=== PATIENT | male | born 1965 | race Caucasian/White ===

== ENCOUNTER 2019-07-20 14:48 | Outpatient (CLI) | payer OTHER, SELFPAY ==
--- NOTE | 2019-07-20 14:37 | DI.RAD_ITS ---
SYMPTOMS/DIAGNOSIS: LEFT SHOULDER ARTHRITIS, RIGHT SHOULDER PAIN LEFT SHOULDER: There is minimal spurring at the tip of the acromion. Mild spurring is also seen at the glenoid. The glenohumeral joint space is well maintained. No tendon or joint space calcifications are seen. IMPRESSION: Minimal degenerative changes. RIGHT SHOULDER: There is minimal spurring at the tip of the acromion and at the inferior glenoid. The glenohumeral joint space is well maintained. No tendon or joint space calcifications are seen.
== END 2019-07-20 15:08 ==
PROVIDERS: PCP Family Medicine; Visit Provider Student in an Organized Health Care Education/Training Program
DX: M25.511 Pain in right shoulder (principal); M19.011 Primary osteoarthritis, right shoulder; M19.012 Primary osteoarthritis, left shoulder
CPT/HCPCS: 73030

== ENCOUNTER 2019-07-27 00:43 | Outpatient (CLI) | payer OTHER, SELFPAY ==
--- NOTE | 2019-07-27 15:13 | DI.MRI_ITS ---
SYMPTOMS/DIAGNOSIS: TENDINITIS OF LONG HEAD OF BICEPS BRACHII OF RIGHT SHOULDER, BILATERAL SHOULDER BURSITIS, ? RIGHT ROTATOR CUFF TEAR, FAILURE OF CONSERVATIVE MANAGEMENT, M75.21, M75.51, M75.52, M75.101 MRI OF THE RIGHT SHOULDER: Comparison is made with plain films dated July,. Proton density and fat-suppressed T2 axial and coronal and T1 and fat-suppressed T2 sagittal sequences were performed. There is no significant spurring at the AC joint. There is some increased signal within the supraspinatus tendon and a tiny defect distally, which may indicate a partial tear. The infraspinatus, subscapularis and biceps tendons appear intact. There is no joint effusion. There are no gross labral defects. IMPRESSION: Partial tear of the supraspinatus tendon.
== END 2019-07-27 01:03 ==
PROVIDERS: PCP Family Medicine; Visit Provider Student in an Organized Health Care Education/Training Program
DX: M75.101 Unspecified rotator cuff tear or rupture of right shoulder, not specified as traumatic (principal); M75.21 Bicipital tendinitis, right shoulder; M75.51 Bursitis of right shoulder; M25.511 Pain in right shoulder
CPT/HCPCS: 73221

== ENCOUNTER 2020-05-21 14:43 | Outpatient (REF) | payer OTHER, SELFPAY ==
[2020-05-21 15:43] LABS: Anion Gap 5.9 mmol/L (3-11); BUN 12 mg/dL (7-18); CO2 29.1 mmol/L (21.0-32.0); CREATININE 0.98 mg/dL (0.70-1.30); Calcium 8.9 mg/dL (8.5-10.1); Calculated LDL 121 mg/dL (<100); Chloride 104 mmol/L (98-107); Cholesterol 180 mg/dL (<200); Glucose 88 mg/dL (74-106); HDL Cholesterol 29 mg/dL (40-60); Magnesium 1.8 mg/dL (1.8-2.4); Potassium 4.4 mmol/L (3.5-5.1); Sodium 139 mmol/L (136-145); Triglyceride 151 mg/dL (<150)
[2020-05-21 15:49] LABS: Hemoglobin A1C 6.1 % (3.8-5.6)
== END 2020-05-21 15:03 ==
LOC: NCHCN 14:43
PROVIDERS: PCP Family Medicine; Visit Provider Family Medicine
DX: F17.200 Nicotine dependence, unspecified, uncomplicated (principal); L29.9 Pruritus, unspecified; M19.90 Unspecified osteoarthritis, unspecified site; Z13.220 Encounter for screening for lipoid disorders; Z13.1 Encounter for screening for diabetes mellitus
CPT/HCPCS: 80048; 80061; 83036; 83735

== ENCOUNTER 2020-06-18 18:25 | Outpatient (REF) | payer OTHER, SELFPAY ==
[2020-06-18 20:27] LABS: ALT 69 U/L (16-63); AST 58 U/L (15-37); Albumin 3.5 g/dL (3.4-5.0); Alkaline Phosphatase 128 U/L (46-116); Bilirubin, Total 0.3 mg/dL (0.2-1.0); Folate 12.4 ng/mL (8.6-20.0); TSH (W/Ref FT4) 1.65 uIU/mL (0.36-3.74); Total Protein 6.9 g/dL (6.4-8.2); Vitamin B12 646 pg/mL (193-986)
[2020-06-18 20:40] LABS: Bilirubin, Direct 0.09 mg/dL (0.00-0.20)
[2020-06-20 12:26] LABS: Ferritin 199 ng/mL (26-388)
[2020-06-20 12:36] LABS: Iron 79 ug/dL (65-175); Total Iron Binding Capacity 242 ug/dL (250-450); Transferrin Sat 33 % (20-55)
== END 2020-06-18 18:45 ==
LOC: NCHCN 18:25
PROVIDERS: PCP Family Medicine; Visit Provider Family Medicine
DX: L29.9 Pruritus, unspecified (principal)
CPT/HCPCS: 80076; 82607; 82728; 82746; 83540; 83550; 84443

== ENCOUNTER 2020-06-27 02:09 | Outpatient (CLI) | payer OTHER, SELFPAY ==
--- NOTE | 2020-06-27 | DI.US_ITS ---
EXAM: US ABDOMEN CLINICAL HISTORY: ELEVATED LFT'S.R79.89 TECHNIQUE: Ultrasound abdomen performed using standard protocol. COMPARISON: No exams were available for comparison FINDINGS: ABDOMINAL AORTA AND IVC: Visualized portions normal caliber. PANCREAS: Normal where visualized. LIVER: Fatty infiltration. Hepatopedal flow in the Portal Vein. 17 cm in length. GALLBLADDER: No evidence of cholelithiasis. No evidence of wall thickening. No pericholecystic fluid identified. BILIARY SYSTEM: Common bile duct measures 5.3 mm. No intrahepatic biliary ductal dilation. BUENROSTRO'S SIGN: Negative. KIDNEYS: Kidneys are symmetric in size. No evidence of renal calculi. No evidence of hydronephrosis. No renal mass or cyst identified. SPLEEN: Not enlarged. ASCITES: None seen. IMPRESSION: Fatty infiltration of the liver. DATA REPOSITORY:
== END 2020-06-27 02:29 ==
PROVIDERS: PCP Family Medicine; Visit Provider Family Medicine
DX: R79.89 Other specified abnormal findings of blood chemistry (principal); K76.0 Fatty (change of) liver, not elsewhere classified
CPT/HCPCS: 76700

== ENCOUNTER 2020-06-27 08:20 | Outpatient (REF) | payer OTHER, SELFPAY ==
[2020-06-29 10:45] LABS: HBs Antibody, Quant <3.1 mIU/mL (See Note); Hepatitis B Surface Ab Negative (See Note)
[2020-06-29 13:18] LABS: Hepatitis A Antibody IgM Negative (Negative); Hepatitis B Core Antibody Negative (Negative); Hepatitis B surface Ag Negative (Negative); Hepatitis C Ab w Rflx HCV PCR Negative (Negative)
[2020-06-29 14:26] LABS: ANA Interpretation Positive (Negative); ANA Titer Pattern 1:80 Homogeneous
== END 2020-06-27 08:40 ==
LOC: NCHCN 08:20
PROVIDERS: PCP Family Medicine; Visit Provider Family Medicine
DX: K76.0 Fatty (change of) liver, not elsewhere classified (principal); R79.89 Other specified abnormal findings of blood chemistry
CPT/HCPCS: 86704; 86706; 86709; 86803; 87340; 86038

== ENCOUNTER 2020-09-11 02:36 | Outpatient (CLI) | payer OTHER, SELFPAY ==
[2020-09-11 14:24] LABS: Iron 68 ug/dL (65-175); Total Iron Binding Capacity 248 ug/dL (250-450); Transferrin Sat 27 % (20-55)
[2020-09-11 14:36] LABS: Ferritin 212 ng/mL (26-388)
== END 2020-09-11 02:56 ==
PROVIDERS: PCP Family Medicine; Visit Provider Family Medicine
DX: L29.9 Pruritus, unspecified (principal)
CPT/HCPCS: 36415; 82728; 83540; 83550

== ENCOUNTER → 2020-10-24 03:28 | Outpatient (CLI) | payer OTHER, SELFPAY ==
[2020-10-24 09:46] LABS: Abs Immature Grans 0.02 10^3/uL (0.0-0.06); Absolute Basophil Count 0.02 10^3/uL (0.0-0.2); Absolute Eosinophil Count 0.16 10^3/uL (0.0-0.7); Absolute Lymphocyte Count 2.63 10^3/uL (1.2-3.4); Absolute Monocyte Count 0.48 10^3/uL (0.1-0.8); Absolute Neutrophil Count 3.52 10^3/uL (1.2-6.7); Basophils % 0.3; Eosinophils % 2.3; HCT 44.7 % (40.0-50.0); HGB 14.8 g/dL (13.5-17.5); Immature Grans % 0.3; Lymphocytes % 38.5; MCH 31.5 pg (27.0-33.0); MCHC 33.1 % (32.0-36.0); MCV 95.1 fL (80-95); MPV 9.5 fL (8.0-11.0); Neutrophils % 51.6; Nucleated RBC 0 %; Platelet Count 262 10^3/uL (130-400); RDW 12.9 % (11.8-14.1); RDW-SD 45.4 fL; WBC 6.83 10^3/uL (4.4-10.8)
[2020-10-24 10:55] LABS: ALT 54 U/L (16-63); AST 43 U/L (15-37); Albumin 3.5 g/dL (3.4-5.0); Alkaline Phosphatase 108 U/L (46-116); Anion Gap 7.2 mmol/L (3-11); BUN 15 mg/dL (7-18); Bilirubin, Total 0.3 mg/dL (0.2-1.0); CO2 27.8 mmol/L (21.0-32.0); CREATININE 1.06 mg/dL (0.70-1.30); Calcium 8.6 mg/dL (8.5-10.1); Chloride 104 mmol/L (98-107); Glucose 111 mg/dL (74-106); Potassium 4.2 mmol/L (3.5-5.1); Sodium 139 mmol/L (136-145)
[2020-10-25 15:33] LABS: Ceruloplasmin 25.3 mg/dL
[2020-10-25 20:41] LABS: Liver/Kidney Microsome Type 1 <5.0 U
[2020-10-26 11:49] LABS: Smooth Muscle Ab Screen Negative (Negative)
[2020-10-26 14:36] LABS: Mitochondrial Ab, M2 <0.1 U
[2020-10-26 15:01] LABS: Alpha-1-Antitrypsin 145 mg/dL (100 - 190)
[2020-10-29 12:43] LABS: IgA 384 mg/dL (85-499); Interpretation (See Note); Tissue Transglutaminase IgA <1.2 U/mL (<4.0)
[2020-10-29 14:39] LABS: Misc Referral (MAYO) See Comments
== END ==
PROVIDERS: PCP Family Medicine; Visit Provider Family Medicine
DX: R74.8 Abnormal levels of other serum enzymes (principal); Z13.811 Encounter for screening for lower gastrointestinal disorder
CPT/HCPCS: 36415; 80053; 82390; 82784; 83516; 82103; 82104; 85025; 86255

== ENCOUNTER 2020-10-31 18:13 | Outpatient (REF) | payer OTHER, SELFPAY ==
[2020-10-31 14:04] LABS: ALT 56 U/L (16-63); AST 47 U/L (15-37); Albumin 3.7 g/dL (3.4-5.0); Alkaline Phosphatase 113 U/L (46-116); Bilirubin, Total 0.3 mg/dL (0.2-1.0); Calculated LDL 132 mg/dL (<100); Cholesterol 197 mg/dL (<200); HDL Cholesterol 35 mg/dL (40-60); Magnesium 1.7 mg/dL (1.8-2.4); Total Protein 7.4 g/dL (6.4-8.2); Triglyceride 150 mg/dL (<150)
[2020-10-31 14:05] LABS: Hemoglobin A1C 5.8 % (<5.7)
[2020-10-31 14:20] LABS: Bilirubin, Direct 0.08 mg/dL (0.00-0.20)
== END 2020-10-31 18:33 ==
LOC: LBN 18:13
PROVIDERS: PCP Family Medicine; Visit Provider Family Medicine
DX: K76.0 Fatty (change of) liver, not elsewhere classified (principal); R73.03 Prediabetes; E78.5 Hyperlipidemia, unspecified
CPT/HCPCS: 80061; 80076; 83036; 83735

== ENCOUNTER 2021-01-21 10:56 | Outpatient (CLI) | payer OTHER, SELFPAY ==
--- NOTE | 2021-01-21 10:00 | DI.RAD_ITS ---
EXAM: XR HIP LT COMPLETE AP PELVIS INDICATION: s/p left MATHEW. COMPARISON: CR BILATERAL HIPS ADULT from 09/03/2016 TECHNIQUE: 2D digital imaging was performed. FINDINGS: There are bilateral hip prostheses which appear unchanged. Cerclage wires are seen in the upper fem oral regions. No abnormal bony lucencies are seen. IMPRESSION: Stable appearance of bilateral hip prostheses. DATA REPOSITORY: RADIATION DOSE DELIVERED:
== END 2021-01-21 10:57 | disposition home or self-care (01) ==
LOC: DIORS 10:57
PROVIDERS: PCP Family Medicine; Referring Provider Family Medicine; Visit Provider Physician Assistant
DX: Z96.643 Presence of artificial hip joint, bilateral (principal)
CPT/HCPCS: 73501; 73502

== ENCOUNTER 2021-02-06 13:10 | Outpatient (REF) | payer OTHER, SELFPAY ==
[2021-02-06 16:23] LABS: Calculated LDL 128 mg/dL (<100); Cholesterol 194 mg/dL (<200); HDL Cholesterol 34 mg/dL (40-60); TSH 1.98 uIU/mL (0.36-3.74); Triglyceride 162 mg/dL (<150)
[2021-02-06 17:06] LABS: FREE T4 0.87 ng/dL (0.76-1.46)
[2021-02-06 22:58] LABS: PSA, Screening 0.2 ng/mL (0.0-3.5)
== END 2021-02-06 13:11 | disposition home or self-care (01) ==
LOC: NCHCN 13:10
PROVIDERS: PCP Family Medicine; Visit Provider Physician Assistant
DX: R73.03 Prediabetes (principal); Z12.5 Encounter for screening for malignant neoplasm of prostate
CPT/HCPCS: 80061; 84153; 83036; 84439; 84443

== ENCOUNTER 2021-06-05 08:01 | Outpatient (CLI) | payer OTHER, SELFPAY ==
--- NOTE | 2021-06-08 11:25 | RESPIRATORY ---
06/08/21- Received a Serious Event report from [employer] [employer] for Sinus Tachy 160.8 bpm. Pt was called , no answer VM left. Report is in [employer].
--- NOTE | 2021-06-26 15:51 | RESPIRATORY ---
Called by [facility] for a critical event - 8 beat run of Vtach. lvm w/ pt's pcp and sanjiv was calling pt.
--- NOTE | 2021-07-08 12:30 | W.CARDEVENT ---
Date of service: 07/08/21 Time of Service: 12:30 Cardiac Event Recorder Referring Provider:: Uma Cortez MD Indications:: Syncope Cardiac Event Note: This is a 30-day event monitor ordered for indication of syncope Predominant rhythm was sinus. Average heart rate was 77. Minimum was 53 and maximum 18 There was no atrial fibrillation. There was no high-grade AV block. There were no pauses greater than 3 seconds There were 3 runs of nonsustained ventricular tachycardia, 3 beats, 4 beats and 7 beats in duration. These appeared to be asymptomatic
== END 2021-06-05 08:02 | disposition home or self-care (01) ==
LOC: RT 08:08
PROVIDERS: PCP Family Medicine; Visit Provider Family Medicine
DX: R55 Syncope and collapse (principal)
CPT/HCPCS: 93270

== ENCOUNTER 2021-07-08 00:58 | Outpatient (CLI) | payer OTHER, SELFPAY ==
--- NOTE | 2021-07-08 14:02 | DI.US_ITS ---
APPROVED REPORT EXAM: Comprehensive 2D, Doppler, and color-flow Echocardiogram Patient Location: Out-Patient Quality Technician [employer]: Janeth Arnold RDCS (AE) Indications: Syncope Other Information Study Quality: Adequate Conclusion Normal left ventricular wall thickness and chamber size. Estimated ejection fraction is 60 to 65%. Wall motion is normal Normal right ventricular size and systolic function Both atria are normal in size Trileaflet aortic valve with trace regurgitation Normal mitral valve with trace regurgitation Normal tricuspid valve with mild regurgitation. Normal estimated right ventricular systolic pressure Normal pulmonic valve with trace regurgitation Wall motion Left Ventricle The left ventricle is normal size. The left ventricular systolic function is normal. The left ventric ular ejection fraction is within the normal range. There is normal left ventricular wall thickness. T here is normal LV segmental wall motion. There is no ventricular septal defect visualized. LVEF is 60 -65%. Right Ventricle The right ventricle is normal size. The right ventricular systolic function is normal. The RVSP is 22 .6mmHg. Atria The left atrium size is normal. The right atrium size is normal. The interatrial septum is intact wit h no evidence for an atrial septal defect. Aortic Valve The aortic valve is normal in structure. Aortic valve is trileaflet. There is no aortic valvular sten osis. Trace aortic regurgitation. Mitral Valve The mitral valve is normal in structure. No evidence of mitral valve stenosis. Trace mitral regurgita tion. Tricuspid Valve The tricuspid valve is normal in structure. There is no tricuspid valve stenosis. Mild tricuspid regu rgitation. Pulmonic Valve The pulmonary valve is normal in structure. There is no pulmonic valvular stenosis. Trace pulmonic re gurgitation. Great Vessels The aortic root is normal in size. The ascending aorta is normal in size. Aortic arch is normal in ca liber. IVC is normal in size and collapses >50% with inspiration. Pericardium There is no pericardial effusion. 2D Dimensions IVSD d PLAX 0.90 cm M: 0.6-1.2 LV Vol A2C d MOD 88.3 mL LVPW d PLAX 0.90 cm M: 0.6 - 1.2 LV Vol A4C d MOD 126.7 mL LVID d PLAX 5.22 cm M: 4.2 - 5.8 LA vol/ BSA A2C s A-L 14.7 mL/m2 LVDs 3.60 cm M: 2.5 - 4.0 LA vol/ BSA A4C s A-L 24.4 mL/m2 Ao Root d 2.64 cm M: 3.1 - 3.7 LA Vol/ BSA Biplane s A-L 20.2 mL/m2 RA Area A4C 19.28 cm2 LA Area A4C s MOD 19.45 cm2 RA Vol/ BSA A4C s A-L 25.7 mL/m2 LA Area A2C s MOD 14.13 cm2 Ao Asc Diam d 3.33 cm M: 2.6 - 3.4 LV EF A4C MOD 59.4 % LV EF Teichholz 57.0 % LV EF A2C MOD 60.8 % LVEF (Herron's) 59.74 % M: 52 - 72 LV EF Biplane MOD 59.7 % LV Volume 79.94 mL M: 62 - 150 SV 66.04 mL LV Volume Index 35.68 mL/m2 M: 34 - 74 SV Index 29.48 mL/m2 LV Vol Biplane MOD 110.5 mL FS 30.10 % M-Mode TAPSE 2.37 cm (M/F) >1.7 LV Diastology MV E' medial 0.100 (>0.07 m/s) E/A Ratio 1.2 LV E/e MED 7.85 (<14) MV E Vmax 0.79 (0.4-1.3 m/s) MV E' lateral 0.143 (>0.1 m/s) MV A Vmax 0.65 (0.4-1.3 m/s) LV E/e LAT 5.50 (<14) MV E/A Ratio 1.18 MV E/E' medial 7.90 MV E/E' lateral 5.53 Aortic Valve LVOT Area 3.21 cm2 AoV Area Vmax 2.98 cm2 LVOT Vmax 1.39 m/s AoV Area/ BSA (Vmax) 1.33 cm2/m2 LVOT Mean Rey. 0.86 m/s AKSHAT Mean Rey. 2.60 cm2 LVOT Peak Grad 7.7 mmHg AKSHAT Mean Rey. Index 1.16 cm2/m2 LVOT Mean Grad 3.6 mmHg LVOT VTI 0.299 m LVOT Diam s 2.00 cm AoV Vmax 1.50 m/s Velocity Ratio 0.92 AoV Mean Rey. 1.06 m/s AoV Peak Grad 9.0 mmHg LVOT SV 95.92 mL AoV Mean Grad 5.0 mmHg AoV VTI 0.323 m AoV Area VTI 2.97 cm2 AoV Area/ BSA (VTI) 1.33 cm/m2 Mitral Valve MV DT 189 (160-240 msec) MR Vmax 4.03 m/s MV PHT 55 msec MR VTI 1.381 m MV Area PHT 4.02 cm2 MR Peak Grad 65.1 mmHg MV VTI 0.300 m MR Mean Grad 51.3 mmHg MV VTI Annulus 0.259 m MV Area VTI 2.81 (4.0-6.0 cm2) Pulmonary Valve PV Vmax 1.00 (0.5-1.5 m/s) RVOT Peak Gr. 2.61 mmHg PV Peak Grad 4.0 mmHg RVOT Mean Gr. 1.25 mmHg PV Mean Grad 2.3 mmHg RVOT VTI 0.181 m PV VTI 0.243 m RVOT Vmax 0.81 m/s Tricuspid Valve TR Peak Grad 30.7 mmHg TR Vmax 2.77 m/s RA Pressure 3.00 mmHg RVSP (TR) 33.8 mmHg
== END 2021-07-08 01:18 ==
PROVIDERS: PCP Physician Assistant; Visit Provider Physician Assistant
DX: R55 Syncope and collapse (principal); I07.1 Rheumatic tricuspid insufficiency
CPT/HCPCS: 93306

== ENCOUNTER 2021-07-12 09:23 | Outpatient (CLI) | payer OTHER, SELFPAY ==
--- NOTE | 2021-07-12 09:15 | RT.EKG_ITS ---
APPROVED REPORT Exam: Resting ECG Reason for Exam: eval Patient Location: O HR:47 bpm ECG Measurements Heart Rate 47 AXIS CO 161 P 11 QRSd 106 QRS 50 QT 432 T 20 QTc 382 Conclusion Sinus bradycardia...rate< 50
== END 2021-07-12 09:24 | disposition home or self-care (01) ==
LOC: DI.CARD 09:24
PROVIDERS: PCP Physician Assistant; Visit Provider Internal Medicine Cardiovascular Disease
DX: R55 Syncope and collapse (principal); I47.2 Ventricular tachycardia
CPT/HCPCS: 93010

== ENCOUNTER 2021-07-18 00:59 | Outpatient (CLI) | payer OTHER, SELFPAY ==
--- NOTE | 2021-07-18 07:45 | DI.NM_ITS ---
APPROVED REPORT Exam: Exercise Treadmill Patient Location: Out-Patient Room/Bed: Stress Nurse: Lavonne Fragoso RN Ordering Provider:EMA GUERRA, Contact Number: BMI: 30.78 Baseline Rhythm: Sinus Bradycardia Indications: NONSUSTAINED VENTRICULAR TACHYCARDIA, SYNCOPE, CAD. Stress Test Details Nuclear Acquisition: Rest Tc-99m/Stress Tc-99m 1 day Rest Isotope: Tc-99m Sestamibi. Dose: 11.0 Date: 07/18/2021 Injection Time: 1125 Stress Isotope: Tc-99m Sestamibi. Dose: 33 Date: 07/18/2021 Injection Time: 1320 HR Resting HR Supine: 56 bpm Max Heart Rate (APMHR): 167.290705 bpm Resting HR Standin bpm Target HR (85% APMHR): 141.583142 bpm Max HR Achieved: 156 bpm % of APMHR: 93.41 Recovery HR: 85 bpm HR response to stress: Normal HR response to stress BP Resting BP Supine: 140/82 mmHg Resting BP Standin/90 mmHg Max BP: 174/76 mmHg Recovery BP: 128/80 mmHg BP response to stress: Normal blood pressure response to stress. ECG Resting ECG: Sinus Bradycardia Ectopy: None Stress ECG: Sinus Tachycardia ST Change: No significant ST segment changes noted Arrhythmia: None Recovery ECG: Sinus Rhythm Recovery ST Change: No significant ST segment changes noted Clinical Reason for Termination: Dyspnea, Sciatic pain Stress Symptoms: Dyspnea Exercise duration: 07 min07 sec Highest Stage Reached: Stage 3: 3.4 mph at 14% grade. Exercise capacity: 8.76 METs Rate Pressure Product: [id number] Stress ECG Conclusion 1. The patient exercised for 7 minutes (8.7 METS). Exercise was stopped due to dyspnea. 2. The patient's heart rate and blood pressure augmented appropriately. 3. The patient no symptoms or ECG findings suggestive of ischemia. Stress Test Summary STAGE Time (mins) Speed (mph) Grade (%) HR BP SYMPTOMS METS Supine 56 140/82 Standing 63 138/90 1 3 1.7 10 118 148/80 4.6 2 6 2.5 12 145 174/76 SpO2 95%, c/o severe SOB 7 1 min recovery 104 158/72 SpO2 98% 3 min recovery 82 150/74 symptoms resolved 6 min recovery 85 128/80 MPI Conclusion The ejection fraction was 45% with stress. There is a moderate sized/intensity fully reversible perfusion defect of the anterior wall and majori ty of the apex This represents an abnormal stress test. Radiologist Interpretation Radiologist agrees with It Help Desk Manager's Interpretation. Radiologist Interpretation by: Bria Lou MD Interpretation Date/Time: 07/18/2021 15:49:02
== END 2021-07-18 01:19 ==
PROVIDERS: PCP Physician Assistant; Visit Provider Internal Medicine Cardiovascular Disease
DX: I47.2 Ventricular tachycardia (principal); R55 Syncope and collapse; I25.10 Atherosclerotic heart disease of native coronary artery without angina pectoris
CPT/HCPCS: 78452; 93017

== ENCOUNTER 2021-08-20 07:55 | Outpatient (REF) | payer OTHER, SELFPAY ==
[2021-08-21 16:28] LABS: COVID-19 RT-PCR UVMMC Result Negative (Negative)
== END 2021-08-20 07:56 | disposition home or self-care (01) ==
LOC: NCHCN 07:55
PROVIDERS: PCP Physician Assistant; Visit Provider Physician Assistant
DX: Z20.822 Contact with and (suspected) exposure to COVID-19 (principal); R94.39 Abnormal result of other cardiovascular function study
CPT/HCPCS: U0003

== ENCOUNTER 2022-04-17 15:17 | Outpatient (REF) | payer OTHER, SELFPAY ==
[2022-04-17 15:22] LABS: Hemoglobin A1C 5.8 % (<5.7)
[2022-04-17 15:23] LABS: ALT 40 U/L (16-63); AST 33 U/L (15-37); Albumin 3.7 g/dL (3.4-5.0); Alkaline Phosphatase 102 U/L (46-116); Anion Gap 11.8 mmol/L (3-11); BUN 12 mg/dL (7-18); Bilirubin, Total 0.3 mg/dL (0.2-1.0); CO2 25.2 mmol/L (21.0-32.0); CREATININE 1.1 mg/dL (0.70-1.30); Calcium 8.6 mg/dL (8.5-10.1); Calculated LDL 134 mg/dL (<100); Chloride 105 mmol/L (98-107); Cholesterol 196 mg/dL (<200); Glucose 113 mg/dL (74-106); HDL Cholesterol 35 mg/dL (40-60); Potassium 4.3 mmol/L (3.5-5.1); Sodium 142 mmol/L (136-145); Total Protein 7.2 g/dL (6.4-8.2); Triglyceride 136 mg/dL (<150)
[2022-04-17 22:06] LABS: PSA, Screening 0.3 ng/mL (<=3.5)
== END 2022-04-17 15:18 | disposition home or self-care (01) ==
LOC: NCHCN 15:17
PROVIDERS: PCP Physician Assistant; Visit Provider Physician Assistant
DX: R73.03 Prediabetes (principal); E78.5 Hyperlipidemia, unspecified; Z12.5 Encounter for screening for malignant neoplasm of prostate
CPT/HCPCS: 80053; 80061; 84153; 83036

== ENCOUNTER → 2022-05-07 01:24 | Outpatient (CLI) | payer OTHER, SELFPAY ==
--- NOTE | 2022-05-07 | DI.CTLCSR_ITS ---
Exam(s) CT CHEST LUNG CANCER SCREEN EXAM: CT CHEST LUNG CANCER SCREEN CLINICAL HISTORY: SCREENING FOR LUNG CA, SMOKER, F17.200 TECHNIQUE: Imaging Protocol: Axial computed tomography images with coronal and sagittal reformatted images were created and reviewed COMPARISON: No exams were available for comparison FINDINGS: Tracheobronchial tree: Patent where visualized. Pulmonary parenchyma: No consolidation or dominant measurable mass. No architectural distortion. Lung Nodules: None. Mediastinum and Shena: No dominant adenopathy or fluid collection. The esophagus is unremarkable. Thyroid gland: Unremarkable. Lymph nodes: Unremarkable. Pleura: No effusion or pneumothorax. Heart: The heart is not dilated. No coronary artery calcifications are seen. No pericardial effusion . Aorta: Thoracic aorta non-dilated. Upper abdomen: Unremarkable. Soft Tissues: Mild bilateral gynecomastia. Bones: Within normal limits. IMPRESSION: No pulmonary nodules. Lung RADS Cat 1 - Negative: No nodules and definitely benign nodules Lung-RADS 1.0 CATEGORIES: Category 0 - Prior chest CT exam(s) being located for comparison. Category 1 - Annual screening in 12 months. No nodules or definitely benign nodules. Category 2 - Annual screening in 12 months. Benign appearance. Nodules with low likelihood of becomin g active cancer. Category 3 - 6-month follow-up. Probably benign. Short-term follow-up suggested. Nodules with low lik elihood of becoming active cancer. Category 4A - 3-month follow-up and CT/PET if >8 mm in size. Suspicious finding. Findings which requi re additional testing. Category 4B - Findings which require additional testing and tissue sampling. Suspicious finding. Category 4X - Category 3 or 4 nodules with additional features or imaging findings that increases the suspicion of malignancy. Modifier S- Potentially clinically significant finding. (Non lung cancer) RADIATION DOSE DELIVERED: 94.08mGy.cm Total DLP 2.21mGyCTDIvol 94.08mGy.cm Total DLP 2.21mGy CTDIvol DATA REPOSITORY: All CT scans at this facility are submitted to the National Radiology Data Registry (NRDR) Dose Index Registry (DIR) with the [employer] ([employer]). RADIATION OPTIMIZATION: All CT scans at this facility use at least one of these dose optimization te chniques: automated exposure control; mA and/or kV adjustment per patient size (includes targeted exa ms where dose is matched to clinical indication); or iterative reconstruction.
== END ==
PROVIDERS: PCP Physician Assistant; Visit Provider Physician Assistant
DX: F17.200 Nicotine dependence, unspecified, uncomplicated (principal); Z12.2 Encounter for screening for malignant neoplasm of respiratory organs
CPT/HCPCS: 71271

== ENCOUNTER 2023-05-01 09:27 | Outpatient (REF) | payer BC, SELFPAY ==
[2023-05-01 17:25] LABS: Hemoglobin A1C 5.8 % (<5.7)
[2023-05-01 17:40] LABS: ALT 48 U/L (16-63); AST 33 U/L (15-37); Albumin 3.6 g/dL (3.4-5.0); Alkaline Phosphatase 85 U/L (46-116); Anion Gap 8.7 mmol/L (3-11); BUN 17 mg/dL (7-18); Bilirubin, Total 0.3 mg/dL (0.2-1.0); CO2 25.3 mmol/L (21.0-32.0); Calcium 8.9 mg/dL (8.5-10.1); Calculated LDL 110 mg/dL (<100); Chloride 104 mmol/L (98-107); Cholesterol 168 mg/dL (<200); Estimated GFR 88.88 (mL/min/1.73m2); Glucose 109 mg/dL (74-106); HDL Cholesterol 39 mg/dL (40-60); Potassium 3.9 mmol/L (3.5-5.1); Sodium 138 mmol/L (136-145); Total Protein 7.1 g/dL (6.4-8.2); Triglyceride 99 mg/dL (<150)
[2023-05-04 09:52] LABS: PSA, Screening 0.4 ng/mL (<=3.5)
== END 2023-05-01 09:28 | disposition home or self-care (01) ==
LOC: NCHCN 09:27
PROVIDERS: PCP Physician Assistant; Visit Provider Physician Assistant
DX: Z12.5 Encounter for screening for malignant neoplasm of prostate (principal); E78.5 Hyperlipidemia, unspecified; R73.03 Prediabetes
CPT/HCPCS: 80053; 80061; 84153; 83036

== ENCOUNTER 2024-01-11 17:50 | Outpatient (REF) | payer BC, SELFPAY ==
[2024-01-11 15:53] LABS: ALT 41 U/L (16-63); AST 28 U/L (15-37); Albumin 3.6 g/dL (3.4-5.0); Alkaline Phosphatase 87 U/L (46-116); Anion Gap 8.2 mmol/L (3-11); BUN 10 mg/dL (7-18); Bilirubin, Total 0.5 mg/dL (0.2-1.0); CO2 28.8 mmol/L (21.0-32.0); Calcium 8.7 mg/dL (8.5-10.1); Chloride 106 mmol/L (98-107); Estimated GFR 88.33 (mL/min/1.73m2); Glucose 117 mg/dL (74-106); Potassium 4.1 mmol/L (3.5-5.1); Sodium 143 mmol/L (136-145)
[2024-01-11 15:59] LABS: Hemoglobin A1C 5.9 % (<5.7)
[2024-01-11 16:18] LABS: Calculated LDL 53 mg/dL (<100); Cholesterol 118 mg/dL (<200); HDL Cholesterol 49 mg/dL (40-60); Triglyceride 81 mg/dL (<150)
== END 2024-01-11 17:51 | disposition home or self-care (01) ==
LOC: NCHCN 17:50
PROVIDERS: PCP Physician Assistant; Visit Provider Physician Assistant
DX: R73.03 Prediabetes (principal); Z13.220 Encounter for screening for lipoid disorders; Z13.228 Encounter for screening for other metabolic disorders
CPT/HCPCS: 80053; 80061; 83036

== ENCOUNTER 2024-11-23 09:35 | Outpatient (REF) | payer OTHER, SELFPAY ==
[2024-11-23 15:33] LABS: HCT 42.4 % (40.0-50.0); HGB 14.5 g/dL (13.5-17.5); MCH 31.3 pg (27.0-33.0); MCHC 34.2 % (32.0-36.0); MCV 92 fL (80-95); MPV 9.8 fL (8.0-11.0); Platelet Count 191 10^3/uL (130-400); RBC 4.63 10^6/uL (4.36-5.78); RDW 12.7 % (11.8-14.1); RDW-SD 42.5 fL; WBC 6.89 10^3/uL (4.4-10.8)
[2024-11-23 16:00] LABS: ALT 38 U/L (16-63); AST 29 U/L (15-37); Albumin 3.5 g/dL (3.4-5.0); Alkaline Phosphatase 96 U/L (46-116); Anion Gap 5.8 mmol/L (3-11); BUN 16 mg/dL (7-18); Bilirubin, Total 0.38 mg/dL (0.2-1.0); CO2 31.2 mmol/L (21.0-32.0); Calcium 8.7 mg/dL (8.5-10.1); Calculated LDL 64 mg/dL (<100); Chloride 107 mmol/L (98-107); Cholesterol 130 mg/dL (<200); Estimated GFR 88.33 (mL/min/1.73m2); Glucose 103 mg/dL (74-106); HDL Cholesterol 51 mg/dL (40-60); Potassium 4.1 mmol/L (3.5-5.1); Sodium 144 mmol/L (136-145); Total Protein 7.1 g/dL (6.4-8.2); Triglyceride 75 mg/dL (<150)
[2024-11-23 17:04] LABS: Hemoglobin A1C 5.9 % (<5.7)
== END 2024-11-23 09:36 | disposition home or self-care (01) ==
LOC: NCHCN 09:35
PROVIDERS: PCP Physician Assistant; Visit Provider Physician Assistant
DX: E78.5 Hyperlipidemia, unspecified (principal); F17.210 Nicotine dependence, cigarettes, uncomplicated; R73.03 Prediabetes
CPT/HCPCS: 80053; 80061; 85027; 83036